=== PATIENT | female | born 1965 | race American Indian/Alaskan Native ===

== ENCOUNTER 2017-03-22 11:08 | Outpatient (CLI) | payer BC ==
--- NOTE | 2017-03-22 14:15 | Fluoroscopy Report ---
UPPER GI SERIES History: Acid reflux, enterogastric fistula. Findings: No recent comparison. Deglutition was normal. No evidence for aspiration. The esophagus is normal caliber and mucosal pattern throughout. Normal motility. No hiatal hernia or reflux was witnessed during this exam. A small gastric remnant is identified which probably represents gastric bypass surgery. There is no evidence for ulceration or abnormal dilatation. Anastomosis with small bowel loops appears intact. There is no evidence for extravasation. No fistula is detected. Multiple proximal small bowel loops are normal caliber and mucosal pattern. Impression: Surgical changes as described. Otherwise, unremarkable exam. No extravasation, obstruction or fistula is identified.
== END 2017-03-22 11:09 | disposition home or self-care (01) ==
LOC: FLUORO 11:08
PROVIDERS: ATTEND Specialist
DX: K21.9 Gastro-esophageal reflux disease without esophagitis (principal); K31.6 Fistula of stomach and duodenum; K63.89 Other specified diseases of intestine; Z98.890 Other specified postprocedural states
CPT/HCPCS: 74241; Q9963

== ENCOUNTER 2017-04-16 05:42 | Inpatient (IN) | payer BC ==
[~2017-04-16 05:42] MED LIST: APRESOLINE IV PRN; FLAGYL 500 MG/100 ML 500 MG/100 ML BAG IV NR; LACTATED RINGERS 1,000 ML IV SCH; LEVAQUIN 500MG/100ML 500 MG/100 ML BAG IV NR; MYLICON PO PRN; REGLAN IV PRN; TRANSDERM-SCOP TD SCH; ZOFRAN IV PRN
[2017-04-16] MEDS ORDERED: TRANSDERM-SCOP TD NR (06:00)
[2017-04-16] MEDS ORDERED: NACL 0.9% 1000 ML 1,000 ML IV SCH (06:00)
[2017-04-16] MEDS ORDERED: VERSED IV NR (06:00)
[2017-04-16] MEDS ORDERED: PEPCID IV NR (06:00)
[2017-04-16] MEDS ORDERED: LEVAQUIN 500MG/100ML 500 MG/100 ML BAG IV NR (07:00)
[2017-04-16] MEDS ORDERED: LOVENOX SUB-Q NR (07:00)
[2017-04-16] MEDS ORDERED: FLAGYL 500 MG/100 ML 500 MG/100 ML BAG IV NR (07:00)
[2017-04-16] MEDS ORDERED: WATER FOR IRRIG STERILE IR ONE (07:15)
[2017-04-16] MEDS ORDERED: DIPRIVAN 10 MG/ML IV ONE (07:20)
[2017-04-16] MEDS ORDERED: SUBLIMAZE ONE (07:21)
[2017-04-16] MEDS ORDERED: ZEMURON IV ONE (07:22)
[2017-04-16] MEDS ORDERED: XYLOCAINE MPF 2% ONE (07:22)
[2017-04-16] MEDS ORDERED: XYLOCAINE 1% 20 mL ONE (07:29)
[2017-04-16] MEDS ORDERED: MARCAINE 0.5% 30 ML INFILTRATI ONE (07:29)
--- NOTE | 2017-04-16 07:34 | Anesthesia Consultation ---
Anesthesia Consult and Med Hx Date of service: 04/16/17 - Airway Anesthetic Teeth Evaluation: Good, Partials (upper ) ROM Head & Neck: Adequate Mental/Hyoid Distance: Adequate Mallampati Class: Class II Intubation Access Assessment: Probably Good - Pulmonary Exam CTA: Yes - Cardiac Exam Cardiac Exam: RRR - Pre-Operative Health Status ASA Pre-Surgery Classification: ASA3 Proposed Anesthetic Plan: General - Pulmonary Hx Smoking: No Hx Asthma: No Hx Sleep Apnea: Yes (+cpap) - Cardiovascular System Hx Hypertension: Yes - Central Nervous System Hx Psychiatric Problems: No - Gastrointestinal Hx Gastroesophageal Reflux Disease: Yes - Endocrine Hx Renal Disease: No (stones) - Hematic Hx Anemia: Yes - Other Systems Hx Alcohol Use: No Hx Substance Use: No Hx Cancer: No Hx Obesity: Yes
--- NOTE | 2017-04-16 07:34 | Anesthesia Day of Surgery ---
Anesthesia Day of Surgery - Day of Surgery Patient Examined: Yes Patient is NPO: Yes
[2017-04-16] MEDS ORDERED: NACL 0.9% IR ONE (07:41)
[2017-04-16] MEDS ORDERED: XYLOCAINE 1% 20 mL INFILTRATI ONE (07:41)
[2017-04-16] MEDS ORDERED: MARCAINE 0.5% INFILTRATI ONE (07:41)
[2017-04-16] MEDS ORDERED: MORPHINE IV PRN ×2 (08:00)
[2017-04-16] MEDS ORDERED: DECADRON ONE (08:08)
[2017-04-16] MEDS ORDERED: NEOSTIGMINE ONE (08:23)
[2017-04-16] MEDS ORDERED: ROBINUL ONE (08:23)
[2017-04-16] MEDS ORDERED: ZOFRAN ONE (08:23)
[2017-04-16] MEDS ORDERED: LACTATED RINGERS 1,000 ML ONE (09:23)
[2017-04-16] MEDS ORDERED: DILAUDID ONE (09:51)
--- NOTE | 2017-04-16 10:51 | Post Anesthesia Evaluation ---
- Post Anesthesia Evaluation Patient Participated: Yes Airway Patent: Yes Stable Respiratory Function: Yes Nausea/Vomiting: No Temp > 96.8F: Yes Pain Manageable: Yes Adequeate Hydration: Yes Anesthesia Complications: No Block Receding Appropriately: Not Applicable Patient on Ventilator: No
[2017-04-16] MEDS: MORPHINE IV PRN ×3 (12:36→23:33)
[2017-04-16] MEDS ORDERED: DILAUDID IV PRN (17:51)
[2017-04-17 05:32] LABS: Hematocrit 38.2 % (30.3-42.9); Hemoglobin 12.6 gm/dl (10.1-14.3); Mean Corpuscular HGB Conc 33 % (30-34); Mean Corpuscular Hemoglobin 30 pg (28-32); Mean Corpuscular Volume 92 fl (79-97); Red Blood Count 4.17 M/mm3 (3.65-5.03); Red Cell Distribution Width 14.8 % (13.2-15.2)
[2017-04-17] MEDS: MORPHINE IV PRN (05:32)
[2017-04-17 05:34] LABS: Platelet Count 86 K/mm3 (140-440)
[2017-04-17 05:56] LABS: Alanine Aminotransferase 119 units/L (7-56); Albumin 3.9 g/dL (3.9-5); BUN/Creatinine Ratio 23; Blood Urea Nitrogen 18 mg/dL (7-17); Calcium 8.5 mg/dL (8.4-10.2); Hemolysis Index 11
[2017-04-17 06:24] LABS: Anisocytosis 1+; Basophils % (Manual) 0 % (0.0-1.8); Eosinophils % (Manual) 0 % (0.0-4.3); Macrocytosis 1+; Platelet Estimate Consistent w Auto; Total Cells Counted 100
[2017-04-17] MEDS ORDERED: TENORMIN PO SCH (10:00)
[2017-04-17] MEDS ORDERED: LOVENOX SUB-Q SCH (11:00)
[2017-04-17] MEDS: NORCO PO PRN ×2 (11:47→18:00)
--- NOTE | 2017-04-17 13:42 | Discharge Summary ---
Providers - Providers Date of Admission: 04/16/17 05:42 Attending physician: JACOBY SELBY Primary care physician: CHIO DUQUE Hospitalization Condition: Good Procedures: laparoscopic GJ revision with BP limb lengthening Hospital course: 51 y.o. F admitted for laparoscopic GJ revision with BP limb lengthening. She tolerated the procedure well. POD 1 she was able to ambulate and her pain was tolerated. She denies any nausea or vomiting. She tolerated liquids. Her PLTs after surgery were 86, preop 97 in the office. Per pt she has no previous hx of thrombocytopenia. She will follow up with her primary care doctor. She will be discharged today. Disposition: DC-01 TO HOME OR SELFCARE Core Measure Documentation - Palliative Care Palliative Care/ Comfort Measures: Not Applicable - Core Measures Any of the following diagnoses?: none Exam - Physical Exam Narrative exam: Gen: A +Ox3 Abd: soft tender at incision sites, dressings with minimal dry blood. no rebound no guarding. ext: no c/c/e - Constitutional Vitals: Temp Pulse Resp BP Pulse Ox 98.5 F 64 18 111/64 96 04/17/17 11:28 04/17/17 11:28 04/17/17 11:28 04/17/17 11:28 04/17/17 11:28 Plan Activity: other (no lifting >15lbs for 6 weeks ) Diet: clear liquids (sugar free clears. follow post bariatric diet in handout ) Wound: keep clean and dry Additional Instructions: Follow up for wound check. Follow up with primary doctor to discuss low platelets. Follow up with: CHIO DUQUE MD [Primary Care Provider] - 7 Days
[2017-04-17 16:15] VITALS: BP 124/65
== END 2017-04-17 18:15 | disposition home or self-care (01) | DRG 327 ==
LOC: 3A 05:42 → 3B-SURG 10:50
PROVIDERS: ADMIT Specialist; ATTEND Specialist
PROC: 0D1B4ZH Bypass Ileum to Cecum, Percutaneous Endoscopic Approach (ICD-10-PCS; principal; 2017-04-16)
PROC: 0DQ64ZZ Repair Stomach, Percutaneous Endoscopic Approach (ICD-10-PCS; 2017-04-16)
PROC: 0DQA4ZZ Repair Jejunum, Percutaneous Endoscopic Approach (ICD-10-PCS; 2017-04-16)
DX: K91.1 Postgastric surgery syndromes (principal); K95.89 Other complications of other bariatric procedure; K21.9 Gastro-esophageal reflux disease without esophagitis; Z68.35 Body mass index [BMI] 35.0-35.9, adult; I10 Essential (primary) hypertension; K30 Functional dyspepsia; E66.01 Morbid (severe) obesity due to excess calories; G47.30 Sleep apnea, unspecified; D64.9 Anemia, unspecified; Z98.84 Bariatric surgery status; Y83.2 Surgical operation with anastomosis, bypass or graft as the cause of abnormal reaction of the patient, or of later complication, without mention of misadventure at the time of the procedure
CPT/HCPCS: 36415; 80053; 85007; 85025; C9250; J1100; J1170; J1650; J1956; J2250; J2270; J2405; J2704; J2710; J3010; J7030; J7120

== ENCOUNTER 2018-11-09 10:36 | Emergency (ER) | payer BC ==
[2018-11-09 10:43] VITALS: BP 163/93
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
[2018-11-09 11:17] LABS: Basophils % (Auto) 0.6 % (0.0-1.8); Hematocrit 38.2 % (30.3-42.9); Hemoglobin 12.6 gm/dl (10.1-14.3); Lymphocytes # (Auto) 0.5 K/mm3 (1.2-5.4); Lymphocytes % (Auto) 12.9 % (13.4-35.0); Mean Corpuscular HGB Conc 33 % (30-34); Mean Corpuscular Volume 91 fl (79-97); Monocytes # (Auto) 0.5 K/mm3 (0.0-0.8); Monocytes % (Auto) 12.6 % (0.0-7.3); Platelet Count 151 K/mm3 (140-440); Red Blood Count 4.19 M/mm3 (3.65-5.03); Red Cell Distribution Width 12.1 % (13.2-15.2)
[2018-11-09 11:22] LABS: Bacteria,Urine 4+ /HPF (Negative); Bilirubin,Urine NEG (Negative); Blood,Urine SM (Negative); Color,Urine Yellow (Yellow); Mucus,Urine FEW /HPF; Protein,Urine <15 mg/dL mg/dL (Negative); Urobilinogen,Urine < 2.0 mg/dL (<2.0)
[2018-11-09 12:11] LABS: Amphetamine Screen,Urine PRESUMPTIVE NEGATIVE; Cannabinoid Screen,Urine PRESUMPTIVE NEGATIVE; Cocaine Screen,Urine PRESUMPTIVE NEGATIVE; Methadone Screen,Urine PRESUMPTIVE NEGATIVE; Opiate Screen,Urine PRESUMPTIVE NEGATIVE
[2018-11-09 12:13] LABS: BUN/Creatinine Ratio 13; Blood Urea Nitrogen 12 mg/dL (7-17); Hemolysis Index 9
[2018-11-09 12:33] LABS: Benzodiazepines Screen,Urine PRESUMPTIVE POSITIVE
[2018-11-09] MEDS ORDERED: KEFLEX PO ONE (12:34)
== END 2018-11-09 20:02 ==
LOC: EEVIPCON 10:36 → ED 10:36
DX: N39.0 Urinary tract infection, site not specified (principal); R45.850 Homicidal ideations; I10 Essential (primary) hypertension; K21.9 Gastro-esophageal reflux disease without esophagitis; M19.90 Unspecified osteoarthritis, unspecified site; Z87.442 Personal history of urinary calculi; Z86.11 Personal history of tuberculosis; Z90.49 Acquired absence of other specified parts of digestive tract; Z88.2 Allergy status to sulfonamides; Z88.8 Allergy status to other drugs, medicaments and biological substances; Z91.013 Allergy to seafood; Z79.899 Other long term (current) drug therapy
CPT/HCPCS: 36415; 80048; 80307; 80320; 81001; 85025; 87076; 87086; 87186; G0480

== ENCOUNTER 2020-01-03 14:50 | Outpatient (CLI) | payer BC ==
[2020-01-03 15:45] LABS: Blood Urea Nitrogen 12 mg/dL (7-17)
--- NOTE | 2020-01-03 16:39 | Cat Scan Report ---
CT ABDOMEN AND PELVIS WITH CONTRAST INDICATION / CLINICAL INFORMATION: K30 FUNCTIONAL DYSPEPSIA/E66.01 MORBID OBESITY. TECHNIQUE: Axial CT images were obtained through the abdomen and pelvis after 100 cc Omnipaque [address] scans at this location are performed using CT dose reduction for ALARA by means of automated exposure control. COMPARISON: None available. FINDINGS: LOWER CHEST: No significant abnormality. LIVER: No significant abnormality. GALLBLADDER: Surgically absent. BILE DUCTS: There is expected generalized prominence of the intrahepatic and extra hepatic bile ducts . No other significant abnormality. PANCREAS: No significant abnormality. SPLEEN: No significant abnormality. ADRENALS: No significant abnormality. RIGHT KIDNEY / URETER: There is moderate renal cortical thinning with multifocal cortical scarring an d multiple cysts measuring up to 9.5 mm. No other significant abnormality. LEFT KIDNEY / URETER: There is moderate cortical thinning with multifocal cortical scarring. Multiple subcentimeter simple cysts are present. No other significant abnormality. STOMACH / SMALL BOWEL: Unremarkable gastric bypass changes. Partial resection of the distal jejunum/p roximal ileum has also been performed previously. No significant abnormality. COLON: No significant abnormality. APPENDIX: No significant abnormality. PERITONEUM: No free fluid. No free air. No fluid collection. LYMPH NODES: No significant adenopathy. AORTA / ARTERIES: No significant abnormality. IVC / VEINS: No significant abnormality. URINARY BLADDER: No significant abnormality. REPRODUCTIVE ORGANS: No significant abnormality. ADDITIONAL FINDINGS: None. SKELETAL SYSTEM: Moderate degenerative changes are seen along the spine and SI joints. No acute abnor mality. IMPRESSION: 1. No acute abnormality of the abdomen or pelvis. 2. Additional findings as above. Signer Name: Fan Morales MD Signed: 01/03/2020 4:35 PM Workstation Name: [id number]
== END 2020-01-03 14:51 | disposition home or self-care (01) ==
LOC: CT 14:50
PROVIDERS: ATTEND Specialist
DX: N28.1 Cyst of kidney, acquired (principal); N28.89 Other specified disorders of kidney and ureter; K30 Functional dyspepsia; E66.01 Morbid (severe) obesity due to excess calories
CPT/HCPCS: 36415; 74177; 82565; 84520; Q9967